=== PATIENT | female | born 1995 | race Hispanic/Latino ===

== ENCOUNTER 2022-10-16 18:01 | Emergency (ER) | payer BC, OTHER ==
[~2022-10-16] VITALS: Ht 160 cm; Wt 93.0 kg
[2022-10-16 21:14] LABS: APPEARANCE,URINE CLEAR (CLEAR); BILIRUBIN,URINE NEGATIVE (NEGATIVE); COLOR,URINE LIGHT-YELLOW (YELLOW); GLUCOSE, URINE (UA) NEGATIVE (NEGATIVE); KETONES,URINE NEGATIVE (NEGATIVE); LEUKOCYTE ESTERASE ,URINE NEGATIVE Leu/uL (NEGATIVE); NITRATE,URINE NEGATIVE (NEGATIVE); OCCULT BLOOD,URINE NEGATIVE (NEGATIVE); PROTEIN,URINE NEGATIVE (NEGATIVE); UROBILINOGEN,URINE 0.2 mg/dL (0.2-1.0)
[2022-10-16] MEDS ORDERED: KETOROLAC 15MG/ML VIAL (15MG/ML) IM ONE (21:30)
[2022-10-16] MEDS ORDERED: ONDA4TAB10 PO (22:14)
[2022-10-16 22:19] VITALS: BP 121/78
== END 2022-10-16 22:23 | disposition home or self-care (01) ==
LOC: EDH 18:01
DX: K29.70 Gastritis, unspecified, without bleeding (principal); R11.0 Nausea
CPT/HCPCS: 99284; 81003; 81025; 96372; J1885